=== PATIENT | female | born 1995 | race Two or more races ===

== ENCOUNTER 2020-07-30 15:32 | Emergency (ER) | payer MEDICAID, OTHER ==
[~2020-07-30] VITALS: Ht 165.1 cm; Wt 113.4 kg
[2020-07-30 20:39] VITALS: BP 154/99
== END 2020-07-30 22:00 | disposition home or self-care (01) ==
LOC: ER 15:34
DX: S82.51XA Displaced fracture of medial malleolus of right tibia, initial encounter for closed fracture (principal); S82.831A Other fracture of upper and lower end of right fibula, initial encounter for closed fracture; W19.XXXA Unspecified fall, initial encounter; Y93.89 Activity, other specified; Y92.89 Other specified places as the place of occurrence of the external cause; Y99.8 Other external cause status
CPT/HCPCS: 29515; 73610